=== PATIENT | male | born 1980 | race African-American/Black ===

== ENCOUNTER 2024-05-06 03:54 | Inpatient (IN) | payer MEDICAID, OTHER ==
[~2024-05-06] VITALS: Ht 188 cm; Wt 73.4 kg
[2024-05-06] VITALS (8 sets, daily range): BP systolic 107–141; BP diastolic 63–77; PULSE 76–120; RESP 16–21; TEMP 97.7–98.1; O2SAT 95–99
[2024-05-06 04:51] LABS: Basophils # (auto) 0.1 10 ^3/uL (0-0.2); Basophils % (auto) 0.9 % (0.0-2.0); Eosinophils # (auto) 0.1 10 ^3/uL (0-0.8); Eosinophils % (auto) 1.8 % (0.0-7.0); Hematocrit 36.8 % (41.0-53.0); Hemoglobin 11.6 g/dL (13.5-17.5); Lymphocytes # (auto) 1.2 10 ^3/uL (0.4-5.4); Lymphocytes % (auto) 14.6 % (10.0-50.0); Mean Corpuscular Hemoglobin 29.4 pg (28.0-32.0); Mean Corpuscular Hgb Conc. 31.6 g/dL (32.0-36.0); Mean Corpuscular Volume 93.1 fL (80.0-100.0); Monocytes # (auto) 1.1 10 ^3/uL (0-1.3); Monocytes % (auto) 12.6 % (0.0-12.0); Neutrophils # (auto) 5.9 10 ^3/uL (1.6-8.6); Neutrophils % (auto) 70.1 % (37.0-80.0); Nucleated Red Blood Cells % 0.1 %; Platelet Count (auto) 169 10^3/uL (140-450); Red Blood Cells 3.96 10^6/uL (4.5-5.90); Red Cell Distribution Width 24.8 % (11.8-14.3); White Blood Cell 8.4 10^3/uL (4.4-10.8)
[2024-05-06] MEDS: HYDROcodone-ACET 10/325MG TAB PO ONE (04:57)
[2024-05-06 05:01] LABS: Anion Gap 14 (5-15); Carbon Dioxide 19 mmol/L (20-31); Chloride 99 mmol/L (98-107); Potassium 4.2 mmol/L (3.5-5.1); Sodium 132 mmol/L (136-145)
[2024-05-06 05:02] LABS: Calcium 9.6 mg/dL (8.7-10.4)
[2024-05-06 05:07] LABS: BUN/Creatinine Ratio 4.7 (10.0-20.0); Blood Urea Nitrogen 33 mg/dL (9-23); Glucose 115 mg/dL (74-106)
[2024-05-06 05:09] LABS: Phosphorus 8.1 mg/dL (2.4-5.1)
[2024-05-06] MEDS ORDERED: hydrALAZINE HCL 20 MG/ML VL IV PRN (06:45)
[2024-05-06] MEDS ORDERED: ONDANSETRON HCL 4 MG/2 ML VIAL IV PRN (06:45)
[2024-05-06] MEDS ORDERED: ACETAMINOPHEN 325 MG TAB PO PRN (06:45)
[2024-05-06] MEDS: FUROSEMIDE 100 MG/10ML VIAL IV ONE (07:40)
[2024-05-06] MEDS: SEVELAMER 800 MG TAB PO SCH (08:00)
[2024-05-06] MEDS: MORPHINE SULFATE INJ 2 MG/ml SYRG IV PRN (10:32)
[2024-05-06] MEDS: NITROGLYCERIN 0.4 MG SL TAB SL PRN (10:32)
[2024-05-06] MEDS: NIFEdipine ER 30 MG TAB PO SCH (11:10)
[2024-05-06] MEDS: LOSARTAN POTASSIUM 50 MG TAB PO SCH (11:11)
[2024-05-06] MEDS: ASPirin 81 mg TAB PO SCH (11:11)
[2024-05-06] MEDS: METOPROLOL SUCCINATE XL 50 MG TAB PO SCH (11:12)
[2024-05-06] MEDS ORDERED: ATOR1POW PO (11:26)
[2024-05-06] MEDS ORDERED: LOSA-534 PO (11:26)
[2024-05-06] MEDS ORDERED: NITR0.4S29 SL (11:26)
[2024-05-06] MEDS ORDERED: ACET-1881 PO (11:26)
[2024-05-06] MEDS ORDERED: ASPI81CH49 PO (11:26)
[2024-05-06] MEDS ORDERED: ENOXAPARIN SOD 100 MG/1 ML SYRINGE SC ONE (15:15)
[2024-05-06 17:17] LABS: Magnesium 2.2 mg/dL (1.6-2.6)
[2024-05-06] MEDS: DIGOXIN (250MCG/ML) 2 ML AMPULE IV ONE (17:22)
[2024-05-06] MEDS: HEPARIN SODIUM (PORCINE) 5000 UNITS/ML 1ML VIAL IV ONE (17:23)
[2024-05-06 17:33] LABS: INR 1.58 (0.9-1.15); Partial Thromboplastin Time 28.4 SEC (24.5-34.5); Prothrombin Time 16.2 sec (9.3-11.8)
[2024-05-06] MEDS: HEPARIN DRIP/D5W 100UNITS/ML 250 ML IV SCH (18:31)
[2024-05-06] MEDS: ATORVASTATIN 20 MG TAB PO SCH (21:46)
[2024-05-06] MEDS ORDERED: MELATONIN 5 MG TAB PO SCH (22:00)
[2024-05-06 23:24] LABS: INR 1.63 (0.9-1.15); Partial Thromboplastin Time 53.8 SEC (24.5-34.5); Prothrombin Time 16.7 sec (9.3-11.8)
[2024-05-07] VITALS (8 sets, daily range): BP systolic 101–120; BP diastolic 42–68; PULSE 61–87; RESP 16–20; TEMP 97.6–98.1; O2SAT 91–98
[2024-05-07] MEDS: HYDROcodone-ACET 5/325MG TAB PO PRN (02:58)
[2024-05-07 06:22] LABS: Basophils # (auto) 0.1 10 ^3/uL (0-0.2); Basophils % (auto) 0.7 % (0.0-2.0); Eosinophils # (auto) 0.1 10 ^3/uL (0-0.8); Hematocrit 36.2 % (41.0-53.0); Hemoglobin 11.4 g/dL (13.5-17.5); Lymphocytes # (auto) 1.2 10 ^3/uL (0.4-5.4); Lymphocytes % (auto) 12.5 % (10.0-50.0); Mean Corpuscular Hemoglobin 29.8 pg (28.0-32.0); Mean Corpuscular Hgb Conc. 31.6 g/dL (32.0-36.0); Mean Corpuscular Volume 94.2 fL (80.0-100.0); Monocytes # (auto) 0.9 10 ^3/uL (0-1.3); Monocytes % (auto) 9.7 % (0.0-12.0); Neutrophils # (auto) 7.1 10 ^3/uL (1.6-8.6); Neutrophils % (auto) 76.1 % (37.0-80.0); Nucleated Red Blood Cells % 0.1 %; Platelet Count (auto) 188 10^3/uL (140-450); Red Blood Cells 3.85 10^6/uL (4.5-5.90); White Blood Cell 9.4 10^3/uL (4.4-10.8)
[2024-05-07 06:23] LABS: Chloride 100 mmol/L (98-107); Potassium 5.2 mmol/L (3.5-5.1); Sodium 132 mmol/L (136-145)
[2024-05-07 06:24] LABS: Anion Gap 14 (5-15); Calcium 9.5 mg/dL (8.7-10.4); Carbon Dioxide 18 mmol/L (20-31)
[2024-05-07 06:29] LABS: Glucose 97 mg/dL (74-106)
[2024-05-07 06:30] LABS: BUN/Creatinine Ratio 5.9 (10.0-20.0)
[2024-05-07 06:33] LABS: Blood Urea Nitrogen 51 mg/dL (9-23)
[2024-05-07 06:34] LABS: Red Cell Distribution Width 25.2 % (11.8-14.3)
[2024-05-07 06:41] LABS: INR 1.57 (0.9-1.15); Partial Thromboplastin Time 48.9 SEC (24.5-34.5); Prothrombin Time 16.1 sec (9.3-11.8)
[2024-05-07] MEDS ORDERED: SODIUM CHL 0.9% 1000 ML BAG XX ONE (07:00)
[2024-05-07] MEDS: HEPARIN DRIP/D5W 100UNITS/ML 250 ML IV SCH (07:03)
[2024-05-07] MEDS: DIGOXIN 0.125 MG TAB PO SCH (08:32)
[2024-05-07] MEDS ORDERED: ENOXAPARIN SOD 100 MG/1 ML SYRINGE SC SCH (10:00)
[2024-05-07] MEDS ORDERED: LIDOCAINE VISCOUS 2% 15ML UD PO ONE (13:00)
[2024-05-07] MEDS ORDERED: MIDAZOLAM HCL 2MG/2ML 2ml VIAL (1mg/ml) IV ONE (13:00)
[2024-05-07] MEDS ORDERED: fentaNYL CITRATE 100 MCG/2 ML VL IV ONE (13:00)
[2024-05-07 14:12] LABS: INR 1.57 (0.9-1.15); Partial Thromboplastin Time 60.6 SEC (24.5-34.5); Prothrombin Time 16.1 sec (9.3-11.8)
[2024-05-07] MEDS: cefTRIAXone 1GM/50ML D5W 50 ML IV ONE (20:44)
[2024-05-07] MEDS: HEPARIN SODIUM (PORCINE) 5000 UNITS/ML 1ML VIAL SC SCH (21:55)
[2024-05-08] VITALS (7 sets, daily range): BP systolic 108–131; BP diastolic 45–62; PULSE 73–122; RESP 18–20; TEMP 97.8–98.5; O2SAT 95–100
[2024-05-08 06:35] LABS: Basophils # (auto) 0 10 ^3/uL (0-0.2); Basophils % (auto) 0.5 % (0.0-2.0); Eosinophils # (auto) 0.1 10 ^3/uL (0-0.8); Eosinophils % (auto) 1.6 % (0.0-7.0); Hemoglobin 11.6 g/dL (13.5-17.5); Lymphocytes # (auto) 1.2 10 ^3/uL (0.4-5.4); Lymphocytes % (auto) 13.1 % (10.0-50.0); Mean Corpuscular Hemoglobin 29.6 pg (28.0-32.0); Mean Corpuscular Hgb Conc. 31.5 g/dL (32.0-36.0); Monocytes # (auto) 0.6 10 ^3/uL (0-1.3); Monocytes % (auto) 7.2 % (0.0-12.0); Neutrophils # (auto) 6.9 10 ^3/uL (1.6-8.6); Neutrophils % (auto) 77.6 % (37.0-80.0); Nucleated Red Blood Cells % 0.2 %; Platelet Count (auto) 180 10^3/uL (140-450); Red Blood Cells 3.93 10^6/uL (4.5-5.90)
[2024-05-08 06:39] LABS: Red Cell Distribution Width 25.6 % (11.8-14.3)
[2024-05-08 08:23] LABS: Anisocytosis Moderate; Ovalocytes MODERATE; Platelet Estimate Adequate; Tear Drop Cells FEW
[2024-05-08] MEDS: cefTRIAXone 1GM/50ML D5W 50 ML IV SCH (10:42)
[2024-05-08] MEDS: ASPirin 81 mg TAB PO SCH (10:45)
[2024-05-08 11:13] LABS: INR 1.56 (0.9-1.15)
[2024-05-08 11:16] LABS: Partial Thromboplastin Time 106.8 SEC (24.5-34.5)
[2024-05-08] MEDS: HEPARIN DRIP/D5W 100UNITS/ML 250 ML IV SCH ×2 (11:37→18:15)
[2024-05-08] MEDS ORDERED: VANCOMYCIN PER PHARMACY 0 MG IV SCH (14:30)
[2024-05-08] MEDS: VANCOMYCIN 1.5GM/300ML 300 ML IV ONE (16:24)
[2024-05-08 17:41] LABS: INR 1.41 (0.9-1.15); Partial Thromboplastin Time 34.2 SEC (24.5-34.5); Prothrombin Time 14.6 sec (9.3-11.8)
[2024-05-09] VITALS (8 sets, daily range): BP systolic 104–129; BP diastolic 51–84; PULSE 68–125; RESP 19–21; TEMP 36.7; O2SAT 94–100
[2024-05-09 01:56] LABS: INR 1.34 (0.9-1.15); Partial Thromboplastin Time 37.5 SEC (24.5-34.5); Prothrombin Time 13.9 sec (9.3-11.8)
[2024-05-09] MEDS: HEPARIN DRIP/D5W 100UNITS/ML 250 ML IV SCH (02:21)
[2024-05-09 06:52] LABS: Basophils # (auto) 0 10 ^3/uL (0-0.2); Basophils % (auto) 0.4 % (0.0-2.0); Eosinophils # (auto) 0.2 10 ^3/uL (0-0.8); Eosinophils % (auto) 1.8 % (0.0-7.0); Hemoglobin 11.7 g/dL (13.5-17.5); Lymphocytes % (auto) 11.2 % (10.0-50.0); Mean Corpuscular Hemoglobin 29.6 pg (28.0-32.0); Mean Corpuscular Hgb Conc. 32.3 g/dL (32.0-36.0); Mean Corpuscular Volume 91.7 fL (80.0-100.0); Monocytes # (auto) 0.8 10 ^3/uL (0-1.3); Monocytes % (auto) 8.5 % (0.0-12.0); Neutrophils # (auto) 7.2 10 ^3/uL (1.6-8.6); Neutrophils % (auto) 78.1 % (37.0-80.0); Platelet Count (auto) 182 10^3/uL (140-450); Red Blood Cells 3.93 10^6/uL (4.5-5.90); Red Cell Distribution Width 25.3 % (11.8-14.3); White Blood Cell 9.2 10^3/uL (4.4-10.8)
[2024-05-09 07:02] LABS: Chloride 98 mmol/L (98-107); Potassium 4.7 mmol/L (3.5-5.1); Sodium 134 mmol/L (136-145)
[2024-05-09 07:03] LABS: Anion Gap 15 (5-15); Carbon Dioxide 21 mmol/L (20-31)
[2024-05-09 07:04] LABS: Calcium 9.5 mg/dL (8.7-10.4)
[2024-05-09 07:08] LABS: Glucose 119 mg/dL (74-106)
[2024-05-09 07:09] LABS: BUN/Creatinine Ratio 7.6 (10.0-20.0); Blood Urea Nitrogen 70 mg/dL (9-23)
[2024-05-09 09:28] LABS: Ovalocytes FEW
[2024-05-09 09:29] LABS: Anisocytosis Moderate; Platelet Estimate Adequate
[2024-05-09 10:14] LABS: INR 1.3 (0.9-1.15); Partial Thromboplastin Time 60.9 SEC (24.5-34.5); Prothrombin Time 13.5 sec (9.3-11.8)
[2024-05-09 13:58] LABS: INR 1.3 (0.9-1.15); Partial Thromboplastin Time 57.3 SEC (24.5-34.5); Prothrombin Time 13.5 sec (9.3-11.8)
[2024-05-10] MEDS ORDERED: METOPROLOL SUCCINATE XL 50 MG TAB PO SCH (10:00)
== END 2024-05-09 17:47 | disposition short-term general hospital (02) | DRG 425 ==
LOC: ER 03:54 → EDBD 03:54 → TELE 06:41 → TELE-WESTW 09:10
PROVIDERS: ADMIT Nurse Practitioner; ATTEND Family Medicine
PROC: 5A1D70Z Performance of Urinary Filtration, Intermittent, Less than 6 Hours Per Day (ICD-10-PCS; principal; 2024-05-07)
DX: E87.70 Fluid overload, unspecified (principal); I50.23 Acute on chronic systolic (congestive) heart failure; I21.A1 Myocardial infarction type 2; I31.39 Other pericardial effusion (noninflammatory); D63.1 Anemia in chronic kidney disease; I48.20 Chronic atrial fibrillation, unspecified; I38 Endocarditis, valve unspecified; E86.1 Hypovolemia; E87.1 Hypo-osmolality and hyponatremia; N18.6 End stage renal disease; E78.00 Pure hypercholesterolemia, unspecified; I13.2 Hypertensive heart and chronic kidney disease with heart failure and with stage 5 chronic kidney disease, or end stage renal disease; I25.10 Atherosclerotic heart disease of native coronary artery without angina pectoris; F17.210 Nicotine dependence, cigarettes, uncomplicated; E87.5 Hyperkalemia; K12.2 Cellulitis and abscess of mouth; Z99.2 Dependence on renal dialysis; Z82.49 Family history of ischemic heart disease and other diseases of the circulatory system; Z83.3 Family history of diabetes mellitus
CPT/HCPCS: 36415; 71045; 80048; 80061; 80202; 83036; 83735; 83880; 84100; 84443; 84484; 85025; 85379; 85610; 85730; 87040; 87340; 90935; 93005; 93306; 96365; 96375; G0378